=== PATIENT | male | born 1965 | race Caucasian/White ===

== ENCOUNTER 2021-09-07 04:07 | Emergency (ER) | payer OTHER ==
--- OUTSIDE RECORDS SUMMARY | 2021-09-07 04:10 | XMS REPORT | Continuity of Care Document ---
:1965 Author Organization [facility] t Address [address] [place] [address] Care Team Providers Name Role Phone [phone] Primary Care Physician Unavailable Alexey KRUSE Attending Clinician Osmar HENNESSY Attending Clinician OSMAR Attending Clinician Unavailable DR MAXIM Attending Clinician Unavailable Christos Richards DO Attending Clinician ALEXEY Attending Clinician Unavailable Kevin KRUSE Attending Clinician KEVIN Attending Clinician Unavailable Pc, Stress Room 1 - Attending Clinician Unavailable Norman KRUSE, K.H. Attending Clinician Pc, Echo Room 1 - Attending Clinician Unavailable DR MAXIM Admitting Clinician Unavailable KEVIN Admitting Clinician Unavailable Payers Payer Name Policy Type Policy Number Effective Date Expiration Date S ource Problems Condition Condition Condition Status Onset Resolution Last Treating Co mments Source Name Details Category Date Date Treatment Clinician Date Mixed Mixed Disease Active Overview: Univer s hyperlipid hyperlipid 1-27 Formattin ity of jl parikh 00:00: g of this [place] 00 note MD might be Anderso different n from the Cancer original. Center Last Assessmen t & Plan: Start statin, discussed side effects including new onset myalgias, also recommend low carbohydr ate diet and consisten t exercise, will repeat in 3 months. Vitamin D Vitamin D Disease Active Overview: Univers deficiency deficiency 1-27 Formattin ity of 00:00: g of this note MD might be Rhonda smith n from the Cancer original. Center Last Assessmen t & Plan: Recommend vitamin D3 4000 units per day for 3 months than decrease to maintenan ce dose of 2000 units per day, will repeat annually. History of History of Disease Active U nivers polyp of polyp of - ity of colon colon 00:00: MD Rhonda hamm [facility] Center Allergies, Adverse Reactions, Alerts Allergy Allergy Status Severity Reaction(s) Onset Inactive Treating Comm ents Source Name Type Date Date Clinician Penicill Drug Active Other (See unknown Uni vers ins Allergy Comments) 3- ity of 00:00: MD Rhonda hamm [facility] Center Penicill Propensi Active Unknown - Patient Un dana in ty to See comments 3-04 is unsure i ty of adverse 00:00: of what [place] reaction 00 happens Medical s Branch Penicill Propensi Active Unknown - Patient Un dana in ty to See comments 3-04 is unsure i ty of adverse 00:00: of what [place] reaction 00 happens Medical s Branch PENICILL DRUG Active Unknown-Cmnt Un dana IN INGREDI 3-04 ity of 00:00: 00 Medical Branch No Known DA Active [facility] Penicill DA Active Unknown [facility] NO KNOWN Drug Active Univers ALLERGIE Class ity of [facility] Family History Family Member Diagnosis Comments Start Date Stop Date Source Maternal Pancreatic cancer Univers ity [facility] Yadiel polanco [facility] Maternal Kidney cancer [facility] MD Chau polanco [facility] Maternal Pancreatic cancer Univers ity [facility] MD Chau polanco [facility] [place] Social History Social Habit Start Date Stop Date Quantity Comments Source History SDOH University o f Alcohol Std [place] Medical Drinks Branch History SDOH University o f Alcohol Binge [place] Medic al Branch Alcohol intake 2019-11-27 2019-11-27 Lifetime University of 00:00:00 00:00:00 non-drinker Yadiel polanco (finding) [facility] Tobacco use and 2019-05-22 2019-05-22 Smokeless tobacco Un iversity of exposure 00:00:00 00:00:00 non-user Yadiel [facility] Education 2019-05-22 2019-05-22 21 University of 00:00:00 00:00:00 [place] MD Keagna [facility] History SDOH 2019-05-21 2019-05-21 1 University o f Alcohol Frequency 00:00:00 00:00:00 [facility] edical Branch Sex Assigned At [birth year] Universit y of 00:00:00 00:00:00 [facility] Smoking Status Start Date Stop Date Source Never smoker [facility] Medications Ordered Filled Start Stop Current Ordering Indication Dosage Frequency Signature Comments Components Source Medication Medication Date Date Medication? Clinician (SIG) Name Name methylPREDN 2019-0 Yes TAKE 6 Univ ers ISolone 7-01 TABLETS ON ity of (MEDROL 00:00: DAY 1 [place] DOSEPACK) 4 00 DIRECTED MD mg tablet ON PACKAGE Chau rso AND n DECREASE Cancer BY 1 TAB Center EACH DAY FOR A TOTAL OF 6 DAYS tc 2020-0 2020- No 44mCi 44 Univers 99m-tetrofo 06-23- millicurie i ty of smin 14:34: 14:34 , [place] ([facility]) 00 :00 Intravenou Medi pancho injection s, ONCE, 1 Bran ch 44 dose, Tue millicurie /7/20 at 1000, Routine tc 2020-0 2020- No 16.5mCi 16.5 Univers 99m-tetrofo 06-23- millicurie i ty of smin 13:00: 13:00 , [place] ([facility]) 00 :00 Intravenou Medi pancho injection s, ONCE, 1 Bran ch 16.5 dose, Tue millicurie /7/20 at 0800, Routine atorvastati 2020-0 Yes 20mg Take 20 mg Univers n 20 mg 3-04 by mouth ity of tablet 21:59: at [place] 10 bedtime. Medical Branch atorvastati 2020-0 Yes 20mg Take 20 mg Univers n 20 mg 3-04 by mouth ity of tablet 21:59: at [place] 10 bedtime. Medical Branch atorvastati 2020-0 Yes 20mg Take 20 mg Univers n 20 mg 3-04 by mouth ity of tablet 21:59: at [place] 10 bedtime. Medical Branch atorvastati 2020-0 Yes 20mg Take 20 mg Univers n 20 mg 3-04 by mouth ity of tablet 21:59: at [place] 10 bedtime. Medical Branch atorvastati 2020-0 Yes 20mg Take 20 mg Univers n 20 mg 3-04 by mouth ity of tablet 21:59: at [place] 10 bedtime. Medical Branch atorvastati 2020-0 Yes 20mg Take 20 mg Univers n 20 mg 3-04 by mouth ity of tablet 21:59: at [place] 10 bedtime. Medical Branch atorvastati 2020-0 Yes 20mg Take 20 mg Univers n 20 mg 3-04 by mouth ity of tablet 21:59: at [place] 10 bedtime. Medical Branch atorvastati 2020-0 Yes 20mg Take 20 mg Univers n 20 mg 3-04 by mouth ity of tablet 21:59: at [place] 10 bedtime. Medical Branch atorvastati 2020-0 Yes 20mg Take 20 mg Univers n 20 mg 3-04 by mouth ity of tablet 21:59: at [place] 10 bedtime. Medical Branch atorvastati 2020-0 Yes 20mg Take 20 mg Univers n 20 mg 3-04 by mouth ity of tablet 21:59: at [place] 10 bedtime. Medical Branch atorvastati 2020-0 Yes 20mg Take 20 mg Univers n 20 mg 3-04 by mouth ity of tablet 21:59: at [place] 10 bedtime. Medical Branch atorvastati 2020-0 Yes 20mg Take 20 mg Univers n (LIPITOR) 1-27 by mouth. ity of 20 mg 00:00: [place] tablet 00 MD Rhonda hamm [facility] cholecalcif 2020-0 Yes Univ s gary, 1-27 ity of vitamin D3, 00:00: [place] (Vitamin 00 D3) 2,000 Anderso units tab n tablet Cancer Center omeprazole 2020-0 Yes 20mg Take 20 mg U nivers (PriLOSEC) 1-27 by mouth ity o f 20 mg 00:00: daily. [place] capsule 00 MD Rhonda hamm [facility] Vital Signs Vital Name Observation Time Observation Value Comments Source Weight 2020-10-22 04:10:00 102.05 KG Height 2020-10-22 04:10:00 177.8 CM Height 2020-10-13 09:50:00 177.8 CM Weight 2020-10-13 09:50:00 99.79 KG Systolic blood 2019-05-21 21:58:00 129 mm[Hg] [facility] [place] Diastolic blood 2019-05-21 21:58:00 79 mm[Hg] [facility] Heart rate 2019-05-21 21:58:00 67 /min Universi ty [facility] Body weight 2019-05-21 21:58:00 100.381 kg [facility] Oxygen saturation 2019-05-21 21:58:00 99 /min Uni [facility] in Arterial blood [facility] Br anch by Pulse oximetry Systolic blood 2019-05-28 13:42:00 114 mm[Hg] [facility] Diastolic blood 2019-05-28 13:42:00 82 mm[Hg] Unive [facility] pressure [facility] Body weight 2019-05-28 13:42:00 100.245 kg [facility] BMI 2019-05-28 13:42:00 30.82 kg/m2 [facility] Systolic blood 2019-05-28 13:09:00 119 mm[Hg] Univer [facility] pressure [facility] Diastolic blood 2019-05-28 13:09:00 78 mm[Hg] [facility] 2019-05-28 13:09:00 55 /min [facility] Body height 2019-05-28 13:09:00 180.3 cm [facility] Body weight 2019-05-28 13:09:00 97.523 kg [facility] BMI 2019-05-28 13:09:00 29.99 kg/m2 [facility] Procedures Procedure Date / Time Performed Performing Clinician Sour e US RENAL 2020-11-12 16:51:20 Osmar [facility] Otto Horn [facility] er Center DIV RT FOOT SUBQ 2020-10-22 00:00:00 [facility] ical TISSUE FASCIA OPEN Center ID MYOCARDIUM 2019-06-24 15:23:00 [facility] [place] PERFUSION STRESS AND Medical Bra nch REST ID MYOCARDIUM 2019-06-24 15:23:00 [facility] o f [place] PERFUSION STRESS AND Medical Bra nch REST ID MYOCARDIUM 2019-06-24 15:23:00 Kevin [facility] PERFUSION STRESS AND Medical Bra nch REST NM MYOCARDIUM 2019-06-24 15:23:00 Kevin [facility] PERFUSION STRESS AND Medical Bra [facility] hospital REST EKG-12 LEAD 2019-05-21 22:02:52 Kevin [facility] Plan of Care Planned Activity Planned Date Details Comments Source Future Scheduled 2021-04-06 COVID-19 Vaccination Uni versity of [place] Test 06:15:40 (1) [code = COVID-19 [facility] Vaccination (1)] Center Encounters Start End Encounter Admission Attending Care Care Encounter Source Date/Time Date/Time Type Type Clinicians Facility Department ID 2020-11-15 2020-11-15 Telemedici Adibi, 1.2.840.1 [id number] Univers 10:30:00 11:00:00 ne [place] [id number] ity of 3.412.2.7 [place] .3.509162 MD Slaughter[facility] 2020-11-12 2020-11-12 Ancillary Peyregne-Lo 1.2.840.1 [id number] Univers 11:00:00 12:00:00 Procedure ivone [id number] it y of [place] 3.412.2.7 [place] .3.373700 MD Slaughter8 [facility] 2020-11-12 2020-11-12 Outpatient EL PEYREGNE-LO [facility] MDA [id number] 10:16:50 10:16:50 Rajesh PARDO n 2020-11-12 2020-11-12 Travel 1.2.840.1 [id number] [facility] 00:00:00 00:00:00 [id number] 350.1.13.41 ity of 3.412.2.7 2.[place].7.3.698 [place] .[id number] 084.8 MD Slaughter8 [facility] 2020-10-22 2020-10-22 Outpatient SOPHIA DAMON [facility] [id number] Marco A 04:03:00 06:16:00 [facility] 2020-06-01 2020-06-01 Patient [facility] [id number] Univers 00:00:00 00:00:00 Outreach Morris CANDELARIO [id number] i ty of [facility] 4.2.7.2.686 [facility] [id number] [address] 2019-11-27 2019-11-27 Outpatient EL ALEXEY MDA MDA [id number] 13:43:10 13:43:10 [place] castorena n 2019-11-21 2019-11-21 Outpatient EL NIKITAYREGRAN-LO MDA MDA [id number] 12:16:15 12:16:15 Rajesh PARDO 2019-06-24 2019-06-24 [facility] [id number] Univers 07:47:00 23:59:00 Encounter Suha Nair [id number] ity of [place] [address] [place] [id number] 2019-06-24 2019-06-24 Outpatient R [facility] [id number] Univers 08:00:00 08:00:00 [id number] ity [facility] 2019-06-24 2019-06-24 [facility] [id number] Univers 07:46:00 07:46:00 Encounter Suha Nair [id number] ity of [place] 4.2.7.[address] [place] [id number] 2019-06-24 2019-06-24 [facility] [id number] Univers 07:46:00 07:46:00 Encounter Suha Nair [id number] ity of [place] 4.2.7.2.[address] [place] [id number] 2019-06-24 2019-06-24 Outpatient R [facility] [id number] Univers 07:45:17 07:45:00 SUHA clarke [facility] 2019-06-24 2019-06-24 Hospital [facility] [id number] Univers 07:45:00 07:45:00 Encounter Suha Nair [id number] [place] 4[place]7.2.686 [place] [id number] [facility] [address] [place] 2019-05-21 2019-06-03 Office [facility] 1.2.840.114 [id number] Univers 15:22:43 09:01:07 Visit Suha Nair 350.1.13.10 it[place]2.686 [place] [id number] Ia dical nal 059 [facility] 2019-05-30 2019-05-30 Patient [facility] 1.2.840.114 [id number] Univers 00:00:00 00:00:00 Secure Msg Suha Nair [id number] it[place] 4[place]2.7.2.686 [place] [id number] Ia dical nal 059 [facility] 2019-05-28 2019-05-28 Laboratory Pc, Adc Stress Room 1 - [facility] [id number] Univers 08:02:15 09:02:15 Only Nitza [place] 350.1.13. 10 ity [place] 4.2.7.2.686 [place] [id number] Ia dical nal 059 [facility] 2019-05-28 2019-05-28 Laboratory Pc, Adc Echo Room 1 [facility] 1 .2.840.114 [id number] Univers 07:54:32 08:54:32 Only Nitza [place] 350.1.13. 10 it[place] 4.2.7.2.686 [place] [id number] Ia dical nal 9 [facility] 2019-05-28 2019-05-28 Outpatient R [facility] [id number] Univers 08:00:00 08:00:00 [id number] ity of [facility] 2019-05-28 2019-05-28 Outpatient R [facility] [id number] Univers 08:00:00 08:00:00 ity of [facility] 2019-05-21 2019-05-21 Outpatient R KEVIN, [facility] [id number] Univers 15:40:00 15:40:00 SUHA clarke [facility] Results Test Description Test Test Results Result Source Time Comments Comments NM MYOCARDIUM 2019-06- Impression: Normal Uni versity of PERFUSION STRESS 07 myocardial perfusion [facility] REST 21:14:40 scan with preserved Branc h ejection fraction andnormal wall thickening.I was present for the stress procedure.Exercise stress myocardial perfusion imaging report Type: Technetium 99 labeled Myoview rest/stress single isotope SPECTimaging with Exercise stress and gated SPECT imaging. Indication: chest pain, abnormal stress EKG Clinical history: HLD Procedure: Exercise stress test was performed with protocol. Gated myocardialperfusion imaging was performed at rest following the injection of 16.5millicuries of technetium labeled Myoview and post stress following theinjection of 44 millicuries of technetium labeled tetrofosmin. Findings: The overall quality of the study was good. Stress EKG revealed no inducible ischemia, reported separately. SPECT images demonstrate homogeneous tracer distribution throughout themyocardium. Gated SPECT images demonstrate normal wall motion and myocardialthickening. Stress Values: ?EDV = 112 mL; ESV = 46 mL; EF = 59%.Rest Values: ?EDV = 114 mL; ESV = 57 mL; EF = 50%. Rust, Radiant Results Inft User - 06/24/2019 4:15 PM CDTExercise stress myocardial perfusion imaging reportType: Technetium 99 labeled Myoview rest/stress single isotope SPECTimaging with Exercise stress and gated SPECT imaging.Indication: chest pain, abnormal stress EKGClinical history: HLDProcedure:Exercise stress test was performed with protocol. Gated myocardialperfusion imaging was performed at rest following the injection of 16.5millicuries of technetium labeled Myoview and post stress following theinjection of 44 millicuries of technetium labeled tetrofosmin.Findings:Th e overall quality of the study was good.Stress EKG revealed no inducible ischemia, reported separately. SPECT images demonstrate homogeneous tracer distribution throughout themyocardium.Gated SPECT images demonstrate normal wall motion and myocardialthickening.St ress Values: EDV = 112 mL; ESV = 46 mL; EF = 59%.Rest Values: EDV = 114 mL; ESV = 57 mL; EF = 50%.IMPRESSIONImpressio n: Normal myocardial perfusion scan with preserved ejection fraction andnormal wall thickening.I was present for the stress procedure.
--- OUTSIDE RECORDS SUMMARY | 2021-09-07 04:10 | XMS REPORT | Clinical Summary ---
:1965 Author Organization [facility] MD Boogie [facility] Address [address] [place] [address] Care Team Providers Name Role Phone Antonio Jones MD Unavailable [phone] MD Alexey Primary Care Provider Allergies Active Allergy Reactions Severity Noted Date Comments Penicillins Other (See Comments) 05/22/2019 unknown Medications Medication Sig Dispensed Refills Start Date End Date Status atorvastatin (LIPITOR) 20 Take 20 mg by 0 04/14/2019 Active mg tablet mouth. cholecalciferol, vitamin 0 04/14/2019 Active D3, (Vitamin D3) 2,000 units tab tablet omeprazole (PriLOSEC) 20 Take 20 mg by 0 04/14/2019 Active mg capsule mouth daily. methylPREDNISolone TAKE 6 TABLETS 0 09/17/2019 Active (MEDROL DOSEPACK) 4 mg ON DAY 1 tablet DIRECTED ON PACKAGE AND DECREASE BY 1 TAB EACH DAY FOR A TOTAL OF 6 DAYS Active Problems Problem Noted Date Mixed hyperlipidemia 04/14/2019 Overview: Last Assessment & Plan: Start statin, discussed side effects inc luding new onset myalgias, also recommend low carbohydrate diet and consistent exercise, will repeat in 3 months. Vitamin D deficiency 04/14/2019 Overview: Last Assessment & Plan: Recommend vitamin D3 4000 units per day for 3 months than decrease to maintenance dose of 2000 units per day, will repeat annually. History of polyp of colon 07/19/2015 Encounters Date Type Specialty Care Team Description 11/15/2020 Telemedicine Urology Joselyn Blackburn MD Cyst of sheila [place] (Primary Dx) 11/12/2020 Ancillary Procedure Radiology Annalee Hedrick PA 11/12/2020 Travel after 09/07/2020 Surgical History Surgery Date Site/Laterality Comments COLONOSCOPY 1991, 2016 SHOULDER SURGERY 03/19/2005 - 03/18/2006 CYSTOSCOPY W/ LASER LITHOTRIPSY 03/19/2005 - 03/18/2006 Right kidney stone Medical History Medical History Date Comments Hyperlipidemia Polyp of colon -1991 Renal stone 2005 Family History Medical History Relation Name Comments Pancreatic cancer Maternal Grandfather Harjinder Fermin Kidney cancer Maternal Grandmother Belkys Fermin Pancreatic cancer Maternal Grandmother Belkys Fermin Relation Name Status Comments Maternal Grandfather Harjinder Fermin Maternal Grandmother Belkys Fermin Social History Tobacco Use Types Packs/Day Years Used Date Never Smoker 0 0 Smokeless Tobacco: Never Used Alcohol Use Standard Drinks/Week Comments Never 0 (1 standard drink = 0.6 oz pure alcoho l) Education Answer Date Recorded What is the highest level of school you have Some college, n o degree 05/22/2019 completed or the highest degree you have received? 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 after 09/07/2020 Results US Renal (11/12/2020 11:51 AM CDT) Anatomical Region Laterality Modality Abdomen Ultrasound Specimen (Source) Anatomical Collection Method Collection Time Re ceived Time Location / / Volume Laterality 11/12/2020 12:52 PM CDT Impressions 11/12/2020 1:16 PM CDT Hypoechoic lesion at the upper pole the left kidney likely corresponds to previously described cyst. Lesion location limits. Characterization by ultrasound. This has not significantly changed in size re lative to the correlated MRI exam. Recom mend continued follow-up. Narrative 11/12/2020 1:16 PM CDT FULL RESULT: Examination: US RENAL, 11/12/2020 11:51 AM Clinical History: Renal mass Indication: Renal Mass Comparison: Correlation with abdomen MRI 11/21/2019 Technique: Grayscale and color Doppler u ltrasound of the kidneys and urinary bladder. Findings: Left kidney: Measures 10.1 cm in lengt h. No hydronephrosis or shadowing renal calculi. At the medial upper pole there is a 1.3 x 0.5 x 0.7 cm hypoechoic lesion with no internal or peripheral vascular flow. This likely corresponds to previou sly described cyst on MRI. Other previously described smaller cysts are not appreciated. Right kidney: Measures 10.2 cm in ramses th. No hydronephrosis or shadowing renal calculi. Urinary bladder: Partly filled and unr emarkable as visualized. Procedure Note Isabel Pina MD - 11/12/2020 FULL RESULT: Examination: US RENAL, 11/12/2020 11:51 AM Clinical History: Renal mass Indication: Renal Mass Comparison: Correlation with abdomen MRI 11/21/2019 Technique: Grayscale and color Doppler u ltrasound of the kidneys and urinary bladder. Findings: Left kidney: Measures 10.1 cm in length . No hydronephrosis or shadowing renal calculi. At the medial upper pole there is a 1.3 x 0.5 x 0.7 cm hypoechoic lesion with no internal or peripheral vascular flow. This likely corresponds to previously describ ed cyst on MRI. Other previously described smaller cysts are not appreciated. Right kidney: Measures 10.2 cm in lengt h. No hydronephrosis or shadowing renal calculi. Urinary bladder: Partly filled and unre markable as visualized. IMPRESSION: Hypoechoic lesion at the upper pole the left kidney likely corresponds to previously described cyst. Lesion location limits. Characterization by ultrasound. This has not significantly changed in size relative to the correlated MRI exam. Recommend continued follow-up. 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
[2021-09-07] MEDS ORDERED: ONDANSETRON 4 MG/2 ML VIAL ONE ×2 (04:23→06:46)
[2021-09-07 04:33] LABS: Absolute Lymphocytes (CBC) 1.6 K/uL (0.7-4.9); Lymphocytes % 16.8 % (15.3-44.8); MPV 8.8 fL (7.6-11.3); RBC Red Blood Cell Count 4.95 M/uL (4.33-5.43)
[2021-09-07] MEDS ORDERED: NA CHLORIDE 0.9% 1,000 ML ONE (04:56)
[2021-09-07] MEDS ORDERED: KETOROLAC 30 MG/ML INJ ONE (04:56)
[2021-09-07 04:58] LABS: Albumin 3.5 g/dL (3.4-5.0); Bilirubin Total 0.5 mg/dL (0.2-1.0); Protein, Total 6.8 g/dL (6.4-8.2)
[2021-09-07 06:27] LABS: Urine Blood 3+ (Negative); Urine Glucose Negative (Negative); Urine Protein 2+ (Negative); Urine Specific Gravity 1.025 (1.005-1.030); Urine pH 5.5 (5.0-7.0)
[2021-09-07] MEDS ORDERED: MORPHINE 4 MG/ML SYR ONE (06:46)
--- NOTE | 2021-09-07 07:29 | EDPHYS ---
Physician Documentation [facility] Name: Don Murillo Age: 56 yrs Sex: Male : 1965 Arrival Date: 09/07/2021 Time: 04:09 Bed 6 Private MD: ED Physician Harsha Bates HPI: 09/07 06:38 This 56 yrs old Male presents to ER via EMS with complaints of Flank Pain. kdr 06:39 Patient has a history of kidney stones. Past 30 minutes patient has had right flank kdr pain. Pain radiates into his right scrotum. Patient has nausea but no vomiting. He notes appears comfortable have been been given fentanyl 200 mcg IV prior to arrival. Patient does not appear toxic or require immediate or emergent intervention. Onset: The symptoms/episode began/occurred suddenly, just prior to arrival, .5 hour(s) ago. Severity of symptoms: At their worst the symptoms were moderate in the emergency department the symptoms have improved moderately. The patient has not experienced similar symptoms in the past. The patient has not recently seen a physician. Historical: - Allergies: 04:11 PENICILLINS; bb - Home Meds: 04:11 atorvastatin oral [Active]; bb - PMHx: 04:11 Hypercholesterolemia; Kidney stone; bb - PSHx: 04:11 Lithotripsy; bb - Immunization history:: Client reports receiving the Dillon \T\ Dillon single-dose vaccine. - Social history:: Smoking status: Patient denies any tobacco usage or history of. ROS: 06:39 Constitutional: Negative for fever, chills, and weight loss, Eyes: Negative for injury, kdr pain, redness, and discharge, Neck: Negative for injury, pain, and swelling, Cardiovascular: Negative for chest pain, palpitations, and edema, Respiratory: Negative for shortness of breath, cough, wheezing, and pleuritic chest pain, Back: Negative for injury and pain, : Negative for injury, bleeding, discharge, and swelling, MS/Extremity: Negative for injury and deformity, Skin: Negative for injury, rash, and discoloration, Neuro: Negative for headache, weakness, numbness, tingling, and seizure activity. 06:39 Abdomen/GI: Positive for nausea, of the anterior aspect of right lateral abdomen and posterior aspect of right lateral abdomen, Negative for abdominal distension, anorexia, dysphagia, hematemesis, black/tarry stool, rectal pain. Exam: 06:39 Constitutional: This is a well developed, well nourished patient who is awake, alert, kdr and in no acute distress. Head/Face: Normocephalic, atraumatic. Eyes: Pupils equal round and reactive to light, extra-ocular motions intact. Lids and lashes normal. Conjunctiva and sclera are non-icteric and not injected. Cornea within normal limits. Periorbital areas with no swelling, redness, or edema. Neck: Trachea midline, no thyromegaly or masses palpated, and no cervical lymphadenopathy. Supple, full range of motion without nuchal rigidity, or vertebral point tenderness. No Meningismus. Chest/axilla: Normal chest wall appearance and motion. Nontender with no deformity. No lesions are appreciated. Cardiovascular: Regular rate and rhythm with a normal S1 and S2. No gallops, murmurs, or rubs. Normal PMI, no JVD. No pulse deficits. Respiratory: Lungs have equal breath sounds bilaterally, clear to auscultation and percussion. No rales, rhonchi or wheezes noted. No increased work of breathing, no retractions or nasal flaring. Back: No spinal tenderness. No costovertebral tenderness. Full range of motion. Skin: Warm, dry with normal turgor. Normal color with no rashes, no lesions, and no evidence of cellulitis. MS/ Extremity: Pulses equal, no cyanosis. Neurovascular intact. Full, normal range of motion. Neuro: Awake and alert, GCS 15, oriented to person, place, time, and situation. Cranial nerves II-XII grossly intact. Motor strength 5/5 in all extremities. Sensory grossly intact. Cerebellar exam normal. Normal gait. Psych: Awake, alert, with orientation to person, place and time. Behavior, mood, and affect are within normal limits. 06:39 Abdomen/GI: Inspection: abdomen appears normal, Bowel sounds: active, Palpation: soft, nontender. Vital Signs: 04:09 BP 166 / 95; Pulse 63; Resp 20 S; Temp 97.6(O); Pulse Ox 99% on R/A; Weight 99.79 kg bb (R); Height 5 ft. 11 in. (180.34 cm) (R); Pain 9/10; 05:00 BP 143 / 96; Pulse 57; Resp 20; Pulse Ox 97% ; vc1 06:00 BP 153 / 102; Pulse 55; Resp 22; Pulse Ox 97% ; vc1 06:50 BP 137 / 81; Pulse 59; Resp 18; Pulse Ox 96% on R/A; vc1 07:15 BP 117 / 79; Pulse 50; Resp 16 S; Pulse Ox 95% on R/A; Pain 1/10; aa5 04:09 Body Mass Index 30.68 (99.79 kg, 180.34 cm) bb MDM: 06:39 Data reviewed: vital signs, nurses notes, lab test result(s), radiologic studies. kdr Counseling: I had a detailed discussion with the patient and/or guardian regarding: the historical points, exam findings, and any diagnostic results supporting the discharge/admit diagnosis, lab results, radiology results. ED course: Patient had improved prior to arrival and on initial presentation. Unfortunately the patient has had a recurrence of his pain and is requiring further pain medication.. 07:28 Patient medically screened. kdr 09/07 04:13 Order name: CBC with Diff; Complete Time: 05:28 kdr 09/07 04:13 Order name: CMP; Complete Time: 05:28 kdr 09/07 04:13 Order name: Lipase; Complete Time: 05:28 kdr 09/07 04:13 Order name: CT Stone Protocol [facility] 09/07 06:28 Order name: Urine Dipstick-Ancillary; Complete Time: 06:38 EDMS 09/07 04:13 Order name: IV Saline Lock; Complete Time: 04:14 kdr 09/07 04:13 Order name: Labs collected and sent; Complete Time: 04:25 kdr Administered Medications: 04:25 Drug: Zofran (Ondansetron) 4 mg Route: IVP; Site: left antecubital; as6 05:00 Follow up: Response: No adverse reaction; Marked relief of symptoms; Nausea is decreasedvc1 04:56 Drug: NS 0.9% 500 ml Route: IV; Rate: bolus; Site: left antecubital; vc1 07:10 Follow up: IV Status: Completed infusion; IV Intake: 500ml aa5 04:57 Drug: Ketorolac 15 mg Route: IVP; Site: left antecubital; vc1 05:30 Follow up: Response: No adverse reaction; Marked relief of symptoms; Pain is decreased vc1 06:47 Drug: morphine 4 mg Route: IVP; Infused Over: 4 mins; Site: left antecubital; vc1 07:10 Follow up: Response: No adverse reaction; Pain is decreased aa5 06:48 Drug: Zofran (Ondansetron) 4 mg Route: IVP; Site: left antecubital; vc1 07:10 Follow up: Response: No adverse reaction aa5 07:30 Drug: Flomax (tamsulosin) 0.4 mg Route: PO; aa5 07:39 Follow up: Response: Medication administered at discharge. aa5 07:39 Drug: [place] (HYDROcodone-acetaminophen) (7.5 mg-325 mg) 1 tabs Route: PO; aa5 07:39 Follow up: Response: Medication administered at discharge. aa5 Disposition Summary: 09/07/21 07:28 Discharge Ordered Location: Home kdr Problem: new kdr Symptoms: have improved kdr Condition: Stable kdr Diagnosis - Calculus of kidney kdr - Other specified disorders of kidney and ureter kdr Followup: kdr - With: Private Physician - When: 2 - 3 days - Reason: If symptoms return, Further diagnostic work-up, Recheck today's complaints, Continuance of care, Re-evaluation by your physician Discharge Instructions: - Discharge Summary Sheet kdr - Kidney Stones kdr - Renal Colic, [id number] kdr Forms: - Medication Reconciliation Form kdr - Thank You Letter kdr - Antibiotic Education kdr - Prescription Opioid Use kdr Prescriptions: - Flomax 0.4 mg Oral capsule - take 1 capsule by ORAL route once daily 1/2 hour following the same meal each kdr day; 12 capsule; Refills: 0, Product Selection Permitted - Zofran 4 mg Oral Tablet - take 1 tablet by ORAL route every 12 hours As needed; 6 tablet; Refills: 0, [facility] Product Selection Permitted - Bactrim DS 800-160 mg Oral Tablet - take 1 tablet by ORAL route every 12 hours for 3 days; 6 tablet; Refills: 0, [facility] Product Selection Permitted - Tylenol-Codeine #3 300 mg-30 mg Oral - take 1 tablet by ORAL route every 4-6 hours As needed; 12 tablet; Refills: 0, kdr Product Selection Permitted Signatures: Dispatcher [facility] H[facility]ha [facility] MD MD kdr Rosie Fields RN RN bb Lor White, RN RN aa5 Alex Amaro, RN RN as6 Esha Morrell, RN RN vc1
--- NOTE | 2021-09-07 07:29 | ER ---
Nurse's Notes [facility] Name: Don Murillo Age: 56 yrs Sex: Male : 1965 Arrival Date: 09/07/2021 Time: 04:09 Bed 6 Private MD: Diagnosis: Calculus of kidney;Other specified disorders of kidney and ureter Presentation: 09/07 04:09 Chief complaint: EMS states: they were toned out for report of pt with severe right bb flank pain x 30 minutes pt has past hx of kidney stones. Coronavirus screen: At this time, the client does not indicate any symptoms associated with coronavirus-19. Ebola Screen: No symptoms or risks identified at this time. Initial Sepsis Screen: Does the patient meet any 2 criteria? No. Patient's initial sepsis screen is negative. Does the patient have a suspected source of infection? No. Patient's initial sepsis screen is negative. Risk Assessment: Do you want to hurt yourself or someone else? Patient reports no desire to harm self or others. Onset of symptoms was September 07, 2021. 04:09 Method Of Arrival: EMS: [facility] bb 04:09 Acuity: CHRISTOPHER 3 bb 04:10 Care prior to arrival: Medication(s) given: Fentanyl 200 mcg, NS 700 mL IV initiated. bb 18 GA, in the left antecubital area. Historical: - Allergies: 04:11 PENICILLINS; bb - Home Meds: 04:11 atorvastatin oral [Active]; bb - PMHx: 04:11 Hypercholesterolemia; Kidney stone; bb - PSHx: 04:11 Lithotripsy; bb - Immunization history:: Client reports receiving the Dillon \T\ Dillon single-dose vaccine. - Social history:: Smoking status: Patient denies any tobacco usage or history of. Screenin:50 Abuse screen: Denies threats or abuse. Nutritional screening: No deficits noted. vc1 Tuberculosis screening: No symptoms or risk factors identified. Fall Risk None identified. Assessment: 04:30 General: Appears uncomfortable, Behavior is anxious, restless. Pain: Complains of pain vc1 in posterior aspect of right lateral abdomen and anterior aspect of right lateral abdomen. Neuro: Level of Consciousness is awake, alert, obeys commands, Oriented to person, place, time, situation, Appropriate for age. Cardiovascular: Capillary refill < 3 seconds Patient's skin is warm and dry. Respiratory: Airway is patent Respiratory effort is even, unlabored, Respiratory pattern is regular, symmetrical. GI: Reports lower abdominal pain. : Urine is blood tinged. EENT: No deficits noted. 04:30 Derm: No deficits noted. vc1 05:30 Reassessment: Patient and/or family updated on plan of care and expected duration. Pain vc1 level reassessed. Patient is alert, oriented x 3, equal unlabored respirations, skin warm/dry/pink. Patient states symptoms have improved. 06:30 Reassessment: No changes from previously documented assessment. Patient and/or family vc1 updated on plan of care and expected duration. Pain level reassessed. Patient is alert, oriented x 3, equal unlabored respirations, skin warm/dry/pink. 06:47 Pain: Complains of pain in posterior aspect of right lateral abdomen and anterior vc1 aspect of right lateral abdomen Pain currently is 10 out of 10 on a pain scale. 07:10 Reassessment: Patient is alert, oriented x 3, equal unlabored respirations, skin aa5 warm/dry/pink. Patient states feeling better. Patient states symptoms have improved. General: Appears comfortable. Pain: Complains of pain in right flank Pain radiates to right groin Pain currently is 1 out of 10 on a pain scale. 07:10 Reassessment: MD was notified of improvement of pain. . aa5 07:39 Reassessment: Patient is alert, oriented x 3, equal unlabored respirations, skin aa5 warm/dry/pink. Vital Signs: 04:09 BP 166 / 95; Pulse 63; Resp 20 S; Temp 97.6(O); Pulse Ox 99% on R/A; Weight 99.79 kg bb (R); Height 5 ft. 11 in. (180.34 cm) (R); Pain 9/10; 05:00 BP 143 / 96; Pulse 57; Resp 20; Pulse Ox 97% ; vc1 06:00 BP 153 / 102; Pulse 55; Resp 22; Pulse Ox 97% ; vc1 06:50 BP 137 / 81; Pulse 59; Resp 18; Pulse Ox 96% on R/A; vc1 07:15 BP 117 / 79; Pulse 50; Resp 16 S; Pulse Ox 95% on R/A; Pain 1/10; aa5 04:09 Body Mass Index 30.68 (99.79 kg, 180.34 cm) bb ED Course: 04:09 Patient arrived in ED. bb 04:11 Triage completed. bb 04:11 Arm band placed on Patient placed in an exam room, on a stretcher, on monitor worker, bb on pulse oximetry. 04:13 Harsha Bates MD is Attending Physician. kdr 04:39 CT Stone Protocol In Process Unspecified. EDMS 04:56 Esha Morrell RN is Primary Nurse. vc1 06:50 Patient has correct armband on for positive identification. Bed in low position. Call vc1 light in reach. Side rails up X2. Pulse ox on. NIBP on. 07:10 Maintain EMS IV. Gauge \T\ site: 18G L AC. aa5 07:33 IV discontinued, intact, bleeding controlled, No redness/swelling at site. Pressure aa5 dressing applied. 07:33 No provider procedures requiring assistance completed. aa5 Administered Medications: 04:25 Drug: Zofran (Ondansetron) 4 mg Route: IVP; Site: left antecubital; as6 05:00 Follow up: Response: No adverse reaction; Marked relief of symptoms; Nausea is decreasedvc1 04:56 Drug: NS 0.9% 500 ml Route: IV; Rate: bolus; Site: left antecubital; vc1 07:10 Follow up: IV Status: Completed infusion; IV Intake: 500ml aa5 04:57 Drug: Ketorolac 15 mg Route: IVP; Site: left antecubital; vc1 05:30 Follow up: Response: No adverse reaction; Marked relief of symptoms; Pain is decreased vc1 06:47 Drug: morphine 4 mg Route: IVP; Infused Over: 4 mins; Site: left antecubital; vc1 07:10 Follow up: Response: No adverse reaction; Pain is decreased aa5 06:48 Drug: Zofran (Ondansetron) 4 mg Route: IVP; Site: left antecubital; vc1 07:10 Follow up: Response: No adverse reaction aa5 07:30 Drug: Flomax (tamsulosin) 0.4 mg Route: PO; aa5 07:39 Follow up: Response: Medication administered at discharge. aa5 07:39 Drug: [place] (HYDROcodone-acetaminophen) (7.5 mg-325 mg) 1 tabs Route: PO; aa5 07:39 Follow up: Response: Medication administered at discharge. aa5 Intake: 07:10 IV: 500ml; Total: 500ml. aa5 Outcome: 07:28 Discharge ordered by . kdr 07:39 Discharged to home ambulatory, with significant other. aa5 07:39 Condition: improved 07:39 Discharge instructions given to patient, Instructed on discharge instructions, follow up and referral plans. medication usage, Demonstrated understanding of instructions, follow-up care, medications, Prescriptions given X 4. 07:40 Patient left the ED. aa5 Signatures: Dispatcher [employer] EDMS Harsha Bates MD MD kdr Rosie Fields RN RN bb Lor White RN RN aa5 Alex Amaro RN RN as6 Esha Morrell RN RN vc1 Corrections: (The following items were deleted from the chart) 07:44 07:44 Patient left the ED. aa5 aa5
[2021-09-07] MEDS ORDERED: TAMSULOSIN 0.4 MG SR CAP ONE (07:35)
[2021-09-07] MEDS ORDERED: HYDROCODONE/APAP 7.5/325 MG TAB ONE (07:42)
[2021-09-07 07:50] VITALS: TEMP 97.6
[2021-09-07 07:56] VITALS: BP 117/79; O2SAT 95
--- NOTE | 2021-09-07 13:52 | RAD REPORT ---
EXAM DESCRIPTION: CT - Stone Protocol - 09/07/2021 6:34 am COMPARISON: None. CLINICAL HISTORY: Flank pain, kidney stone suspected TECHNIQUE: CT of the abdomen and pelvis was acquired without IV contrast material. Coronal and sag ittal reconstructions were obtained. Automated exposure control was utilized on this examination as a dose lowering technique. FINDINGS: Lung bases: Clear. *Evaluation of solid organs is limited due to lack of IV contrast. Liver: Normal. Gallbladder and biliary: Normal gallbladder. Unremarkable biliary tree. Pancreas: Normal. Spleen: Normal. Adrenal glands: Normal adrenal glands. Kidneys: 3 mm obstructing calculus of the right ureterovesicular junction with mild right hydronephro sis. Additional nonobstructing bilateral renal calculi measure up to 4 mm. Stomach and Small Bowel: The stomach and small bowel are normal. Urinary bladder: Normal. Prostate/Male Urogenital: Normal. Colon and Appendix: Mild colonic diverticulosis. No evidence of appendicitis. Retroperitoneum and lymph nodes: Normal. Vascular: Unremarkable. Peritoneal cavity: No ascites or free air. Musculoskeletal and soft tissues: Soft tissues are unremarkable. No aggressive bone lesions. No com pression fracture. IMPRESSION: 1. 3 mm obstructing calculus of the right ureterovesicular junction with mild right hydr onephrosis. Additional nonobstructing bilateral renal calculi are also present. 2. Mild colonic diverticulosis. Electronically signed by: Julio Godwin MD 09/07/2021 5:17 AM CDT Due to temporary technical issues with the PACS/Fluency reporting system, reports are being signed by the in house radiologist without review as a courtesy to ensure prompt reporting. The interpreting r adiologist is fully responsible for the content of the report.
== END 2021-09-07 07:44 | disposition home or self-care (01) ==
LOC: ER 04:07
DX: N20.0 Calculus of kidney (principal); N28.89 Other specified disorders of kidney and ureter; Z87.442 Personal history of urinary calculi; Z88.0 Allergy status to penicillin
CPT/HCPCS: 96361; 85025; 36415; 81003; 83690; 80053; 76377; 74176; 96375; 96374; 99284; J7030; J2405 ×2

== ENCOUNTER 2022-10-14 16:43 | Emergency (ER) | payer OTHER ==
--- OUTSIDE RECORDS SUMMARY | 2022-10-14 16:46 | XMS REPORT | Clinical Summary ---
:1965 Author Organization [facility] Address [address] [place] [address] Care Team Providers Name Role Phone Antonio Jones MD Unavailable [phone] Joselyn Blackburn MD Primary Care Provider Allergies Active Allergy Reactions [...] annually. History of polyp of colon 07/19/2015 Surgical History Surgery Date Site/Laterality Comments COLONOSCOPY 1991, 2016 SHOULDER SURGERY 03/19/2005 - 03/18/2006 CYSTOSCOPY W/ LASER LITHOTRIPSY 03/19/2005 - 03/18/2006 Right kidney stone Medical History Medical History Date Comments Hyperlipidemia Polyp of colon -1991 Renal stone 2006 Family History Medical History Relation Name Comments Pancreatic cancer Maternal Grandfather Harjinder Fermin Kidney cancer Maternal Grandmother Belkys Fermin Pancreatic cancer Maternal Grandmother Belkys Fermin Relation Name Status Comments Maternal Grandfather Harjinder Fermin Maternal Grandmother Belkys Fermin Social History Tobacco Use Types Packs/Day Years Used Date Smoking Tobacco: Never Smokeless Tobacco: Never Alcohol Use Standard Drinks/Week Comments Never 0 (1 standard drink = 0.6 oz pure alcoho l) Education Answer Date Recorded What is the highest level of school you have Some college, n o degree 05/22/2019 completed or the highest degree you have received? Sex Assigned at Date Recorded Male 05/13/2019 2:14 PM [employer] Job Start Date Occupation Industry Not on file Not on file Not on file Obstetrics History Last Filed Vital Signs Not on file Plan of Treatment Health Maintenance Due Date Last Done Comments COVID-19 Vaccination (#1) 01/10/1967 Results Not on fileafter 10/14/2021 Insurance Payer Benefit Plan / Subscriber ID Effective Dates Phone Addre ss Type Group A[employer]NA MANAGED AETNA O [id number] 2000-Present PO JAMIN X [id number] [facility] [place] [address] Care Teams [employer] Relationship Specialty Start Date End Date Antonio Jones MD PCP - External Referring Urology 05/09/[id number] [place] [address] Joselyn Blackburn MD PCP - General Urology 05/22/19 [address] [place], [place] [id number]
--- OUTSIDE RECORDS SUMMARY | 2022-10-14 16:47 | XMS REPORT | Continuity of Care Document ---
:1965 Author Organization [facility] t Address [address] [place] [address] [place] [address] Care Team Providers Name Role Phone Carrington Blackburn MD Primary Care Physician Carrington Blackburn MD Attending Clinician Otto Adhikari Attending Clinician [phone] CHITO PAN Attending Clinician Unavailable Morris Richards DO Attending Clinician CARRINGTON BLACKBURN Attending Clinician Unavailable OTTO PRASAD Attending Clinician Unavailable Suha Brown MD Attending Clinician SUHA BROWN Attending Clinician Unavailable , Adc Stress Room 1 - Attending Clinician Unavailable Nitza Austin MD Attending Clinician Pc, Adc Echo Room 1 - Attending Clinician Unavailable DR CHITO PAN Admitting Clinician Unavailable SUHA BROWN Admitting Clinician Unavailable Payers Payer Name Policy Type Policy Number Effective Date Expiration Date S ource Problems Condition Condition Condition Status Onset Resolution Last Treating Co mments Source Name Details Category Date Date Treatment Clinician Date 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 Center Last Assessmen t & Plan: Start statin, discussed side effects including new onset myalgias, also recommend low carbohydr ate diet and consisten t exercise, will repeat in 3 months. 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 Center Last Assessmen t & Plan: Recommend vitamin D3 4000 units per day for 3 months than decrease to maintenan ce dose of 2000 units per day, will repeat annually. History of History of Disease Active U nivers polyp of polyp of 07-18 ity of colon colon [facility]:00: [facility] Allergies, Adverse Reactions, Alerts Allergy Allergy Status Severity Reaction(s) Onset Inactive Treating Comm ents Source Name Type Date Date Clinician Penicill Drug Active Other (See unknown Uni vers ins Allergy Comments) 3- ity [facility] Penicill Drug Active Other (See unknown Uni vers ins Allergy Comments) 3-05 it[facility] Penicill Propensi Active Unknown - Patient Un [...] 3-04 ity of 00:00: 00 Medical Branch NO KNOWN Drug Active Univers ALLERGIE Class ity of [facility] [place] [facility] [place] No Known DA Active [facility] Penicill DA Active Unknown [facility] Family History Family Member Diagnosis Comments Start Date Stop Date Source Maternal Pancreatic cancer Univers ity of [facility] Yadiel [facility] Maternal Kidney cancer [facility] MD Ritchie [facility] Maternal Pancreatic cancer Univers ity of [facility] [place] [facility] MD Ritchie [facility] Social History Social Habit Start Date Stop Date Quantity Comments Source History SDOH University o f Alcohol Std [place] [facility] History [facility] o f Alcohol Binge [place] [facility] Alcohol intake 2019-11-27 2019-11-27 Lifetime University of 00:00:00 00:00:00 non-drinker [facility]iel polanco (finding) [facility] Education 2019-05-22 2019-05-22 21 University of 00:00:00 00:00:00 [facility] Tobacco use and 2019-05-22 2019-05-22 Smokeless tobacco Un iversity of exposure 00:00:00 00:00:00 non-user [facility] History SDGA 2019-05-21 2019-05-21 1 University o f Alcohol Frequency 00:00:00 00:00:00 [facility] [place] Sex Assigned At [birth year] Universit y of 00:00:00 00:00:00 [facility] Smoking Status Start Date Stop Date Source Never smoker [facility] Medications Ordered Filled Start Stop Current Ordering Indication Dosage Frequency Signature Comments Components Source Medication Medication Date Date Medication? Clinician (SIG) Name Name methylPREDN Yes TAKE 6 Univ ers ISolone 7-01 TABLETS ON ity of (MEDROL 00:00: DAY 1 [place] DOSEPACK) 4 00 DIRECTED MD mg tablet ON PACKAGE Chau rso AND n DECREASE Cancer BY 1 TAB Center EACH DAY FOR A TOTAL OF 6 DAYS methylPREDN 2020-0 Yes TAKE 6 Univ ers ISolone 7-01 TABLETS ON ity of (MEDROL 00:00: DAY 1 [place] DOSEPACK) 4 00 DIRECTED MD mg tablet ON PACKAGE Chau rso AND n DECREASE Cancer BY 1 TAB Center EACH DAY FOR A TOTAL OF 6 DAYS tc 2019- 2020- No 44mCi 44 Univers 99m-tetrofo 4-07 04-07 millicurie i ty of smin 14:34: 14:34 , [place] (MYOVIEW) 00 :00 Intravenou Medi pancho injection s, ONCE, 1 Bran ch 44 dose, Tue millicurie 06/24/19 at 1000, Routine tc 2019- 2020- No 16.5mCi 16.5 Univers 99m-tetrofo 4-07 04-07 millicurie i ty of smin 13:00: 13:00 , [place] (MYOVIEW) 00 :00 Intravenou Medi pancho injection s, ONCE, 1 Bran ch 16.5 dose, Samy huitron 06/24/19 at 0800, Routine atorvastati 2020-0 Yes 20mg [...] by mouth. ity of 20 mg 00:00: [place] tablet 00 MD Rhonda hamm [facility] cholecalcif 2020-0 Yes Jazmin vega 04-14 ity of vitamin D3, 00:00: [place] (Vitamin 00 MD D3) 2,000 Anderso units tab n tablet Cancer Center omeprazole 2020-0 Yes 20mg Take 20 mg U nivers (PriLOSEC) 04-14 by mouth ity o f 20 mg 00:00: daily. [place] capsule 00 MD Rhonda hamm [facility] atorvastati 2019-0 Yes 20mg Take 20 mg Univers n (LIPITOR) 04-14 by mouth. ity of 20 mg 00:00: [place] tablet 00 MD Rhonda hamm [facility] cholecalcif 2020-0 Yes [facility] gary, 04-14 ity of vitamin D3, 00:00: [place] (Vitamin MD D3) 2,000 Anderso units tab n tablet [facility] omeprazole 0 Yes 20mg Take 20 mg U nivers (PriLOSEC) 04-14 by mouth ity o f 20 mg 00:00: daily. [place] capsule 00 MD Rhonda hamm [facility] Vital Signs Vital Name Observation Time Observation Value Comments Source Height 2020-10-22 04:10:00 177.8 CM Weight 2020-10-22 04:10:00 102.05 KG Weight 2020-10-13 09:50:00 99.79 KG Height 2020-10-13 09:50:00 177.8 CM Systolic blood 2019-05-21 21:58:00 129 mm[Hg] [facility] Diastolic blood 2019-05-21 21:58:00 79 mm[Hg] [facility] Heart rate 2019-05-21 21:58:00 67 /min [facility] Body weight 2019-05-21 21:58:00 100.381 kg [facility] Oxygen saturation 2019-05-21 21:58:00 99 /min [facility] in Arterial blood Medical Br anch by Pulse oximetry Systolic blood 2019-05-28 13:42:00 114 mm[Hg] [facility] Diastolic blood 2019-05-28 13:42:00 82 mm[Hg] [facility] Body weight 2019-05-28 13:42:00 100.245 kg [facility] BMI 2019-05-28 13:42:00 30.82 kg/m2 [facility] Systolic blood 2019-05-28 13:09:00 119 mm[Hg] Univer sity [facility] pressure [facility] Diastolic blood 2019-05-28 13:09:00 78 mm[Hg] Unive rsity [facility] Heart rate 2019-05-28 13:09:00 55 /min [facility] Body height 2019-05-28 13:09:00 180.3 cm [facility] Body weight 2019-05-28 13:09:00 97.523 kg [facility] BMI 2019-05-28 13:09:00 29.99 kg/m2 [facility] Procedures Procedure Date / Time Performed Performing Clinician Sour e US RENAL 2020-11-12 16:51:20 Ryley [facility] Otto Horn [facility] er Center DIV RT FOOT SUBQ 2020-10-22 00:00:00 [place] [facility] ical TISSUE FASCIA OPEN Center [place] MYOCARDIUM 2019-06-24 15:23:00 [facility] PERFUSION STRESS AND Medical Bra nch REST [place] MYOCARDIUM 2019-06-24 15:23:00 [facility] PERFUSION STRESS AND Medical Bra nch REST [place] MYOCARDIUM 2019-06-24 15:23:00 [facility] PERFUSION STRESS AND Medical Bra nch REST [place] MYOCARDIUM 2019-06-24 15:23:00 [facility] [place] PERFUSION STRESS AND Medical Bra nch REST EKG-12 LEAD 2019-05-21 22:02:52 [facility] Plan of Care Planned Activity Planned Date Details Comments Source Future Scheduled 2021-09-21 COVID-19 Vaccination Uni versity of [place] Test 06:45:52 (#1) [code = WADE KRUSE And erson Cancer Vaccination (#1)] Center Future Scheduled 2021-04-06 COVID-19 Vaccination Uni versity of [place] Test 06:15:40 (1) [code = WADE KRUSE Chau rson Cancer Vaccination (1)] Center Encounters Start End Encounter Admission Attending Care Care Encounter Source Date/Time Date/Time Type Type Clinicians Facility Department ID 2020-11-15 2020-11-15 Telemedici Adibi, 1.2.840.1 [id number] Univers 10:30:00 11:00:00 ne Mehrcorey [id number] ity of 3.412.2.7 [place] .3.408054 .8 [facility] 2020-11-12 2020-11-12 Ancillary EL Peyregne-Lo 1.2.840.1 [id number] [facility] 11:00:00 12:00:00 Procedure ivone [id number] it y of [place] 3.412.2.7 [place] .3.376019 .8 [facility] 2020-11-12 2020-11-12 Travel 1.2.840.1 [id number] Univers 00:00:00 00:00:00 [id number] 350.1.13.41 ity of 3.412.2.7 2[place].3.698 [place] .3.988506 084.8 .8 [facility] 2020-10-22 2020-10-22 Outpatient Basilio PAN [facility] [id number] [facility] 04:03:00 06:16:00 [facility] 2020-06-01 2020-06-01 Patient [facility] [id number] Univers 00:00:00 00:00:00 Outreach Morris PRIMARY [id number] i ty of [facility] 4.2.7.2.686 Dean LEWIS [id number] Me dical [address] Branch 2019-11-27 2019-11-27 Outpatient EL ADIBI, MDA MDA [id number] 13:43:10 13:43:10 CARRINGTON hamm 2019-11-21 2019-11-21 Outpatient EL PEYREGNE-LO MDA MDA [id number] 12:16:15 12:16:15 Rajesh PARDO 2019-06-24 2019-06-24 [facility] [id number] Univers 07:47:00 23:59:00 Encounter Qiangjun [place] [id number] ity of [place] 4.2.7.2.686 [facility] [id number] [address] 2019-06-24 2019-06-24 [facility] 1.2.840.114 [id number] Univers 07:46:00 07:46:00 Encounter Qiangjun [place] [id number] ity of [place] 4.2.7.2.686 [facility] [id number] [address] 2019-06-24 2019-06-24 [facility] [id number] Univers 07:46:00 07:46:00 Encounter Qiangjun [place] [id number] ity of [place] 4.2.7.2.686 [facility] [id number] [address] 2019-06-24 2019-06-24 Outpatient R [facility] [id number] Univers 07:45:17 07:45:00 QIANGJUN ity o f [facility] 2019-06-24 2019-06-24 [facility] 1.2.840.114 [id number] Univers 07:45:00 07:45:00 Encounter Qiangjun [place] [id number] ity of [place] 4.2.7.2.686 [facility] [id number] [address] 2019-05-21 2019-06-03 Office [facility] 1.2.840.114 [id number] Univers 15:22:43 09:01:07 Visit Qiangjun [place] [id number] ity of [place] 4.2.7.2.686 [place] [id number] S[place] dical nal 059 [facility] 2019-05-30 2019-05-30 Patient [facility] 1.2.840.114 [id number] Univers 00:00:00 00:00:00 Secure Msg Qiangjun [place] [id number] ity of [place] 4.2.7.2.686 [place] [id number] Sd dical nal 059 [facility] 2019-05-28 2019-05-28 Laboratory Pc, Adc Stress Room 1 [facility] 1.2.840.114 [id number] Univers 08:02:15 09:02:15 Only Nitza [place] 350.1.13. 10 ity of [place] 4.2.7.2.686 [place] [id number] Sd dical nal 9 [facility] 2019-05-28 2019-05-28 Laboratory Pc, Adc Echo Room [address] [place] [address] 1 .2.840.114 [id number] Univers 07:54:32 08:54:32 Only Nitza [place] 350.1.13. 10 ity of [place] 4.2.7.2.686 [place] [id number] [address] 2019-05-28 2019-05-28 Outpatient R [facility] [id number] Univers 08:00:00 08:00:00 ity of [facility] 2019-05-21 2019-05-21 Outpatient R KEVIN, [facility] [id number] Univers 15:40:00 15:40:00 SUHA castorena f [facility] Results Test Description Test Test Results Result Source Time Comments Comments NM MYOCARDIUM 2019-06- Impression: Normal Uni versity of PERFUSION STRESS 07 myocardial perfusion [facility] AND REST 21:14:40 scan with preserved Branc h [...] ESV = 57 mL; EF = 50%. [facility], Radiant Results Inft User - 06/24/2019 4:15 [...]
[2022-10-14 17:30] LABS: Absolute Lymphocytes (CBC) 1.5 K/uL (0.7-4.9); Hematocrit 42.1 % (39.6-49.0); MCV 85.1 fL (80-100); MPV 8.4 fL (7.6-11.3); RBC Red Blood Cell Count 4.95 M/uL (4.33-5.43)
[2022-10-14 17:45] LABS: Potassium 4.1 mEq/L (3.5-5.1)
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
--- NOTE | 2022-10-14 18:10 | RAD REPORT ---
EXAM DESCRIPTION: RAD - Hand Left 3 View - 10/14/2022 6:01 pm CLINICAL HISTORY: PAIN COMPARISON: No comparisons FINDINGS: No acute fracture or dislocation seen.
[2022-10-14] MEDS ORDERED: HYDROCODONE/APAP 5/325 MG TAB ONE (18:44)
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
[2022-10-14 19:16] VITALS: TEMP 98.1
[2022-10-14 19:18] VITALS: BP 135/97; O2SAT 96
== END 2022-10-14 19:11 | disposition home or self-care (01) ==
LOC: ER 16:43
DX: M79.642 Pain in left hand (principal); R10.9 Unspecified abdominal pain; V53.5XXA Driver of pick-up truck or van injured in collision with car, pick-up truck or van in traffic accident, initial encounter; Z88.0 Allergy status to penicillin
CPT/HCPCS: 85025; 80048; 36415; 86900; 86850; 86901; 70450; 72125; 71260; 74177; 73130; 99285; Q9967